=== PATIENT | female | born 1970 | race Caucasian/White ===

== ENCOUNTER 2019-09-11 09:56 | Emergency (ER) | payer MEDICAID ==
[~2019-09-11] VITALS: Ht 149.9 cm; Wt 50.0 kg
[~2019-09-11 09:56] MED LIST changes: -FLEXERIL 1010 MG/TAB PO; -PREDNISONE10 MG PO; -ULTRAM 50MG TAB50 MG PO
[2019-09-11 10:12] VITALS: TEMP 98
[2019-09-11] MEDS ORDERED: FLEXERIL 1010 MG/TAB PO ×2 (11:02→12:15)
[2019-09-11] MEDS ORDERED: PREDNISONE10 MG PO (11:02)
[2019-09-11] MEDS ORDERED: ULTRAM 50MG TAB50 MG PO ×2 (11:02→12:15)
[2019-09-11 12:15] VITALS: BP 123/69; PULSE 82
== END 2019-09-11 12:32 | disposition home or self-care (01) ==
LOC: COL.ER 09:56
DX: M25.551 Pain in right hip (principal); M25.552 Pain in left hip; F17.210 Nicotine dependence, cigarettes, uncomplicated; Z79.52 Long term (current) use of systemic steroids

== ENCOUNTER → 2019-09-11 | Outpatient (CLI) | payer MEDICAID ==
[~2019-09-11] MED LIST: AZO YEAST 6 X-61 TAB PO; AZO-CRANBERRY450 MG PO; DIFLUCAN150 MG PO; FLAGYL500 MG PO; FLEXERIL 1010 MG/TAB PO; PREDNISONE10 MG PO; ULTRAM 50MG TAB50 MG PO
== END ==
LOC: COL.RAD 09:30
DX: M16.12 Unilateral primary osteoarthritis, left hip (principal); M51.16 Intervertebral disc disorders with radiculopathy, lumbar region

== ENCOUNTER 2020-03-10 22:07 | Emergency (ER) | payer MEDICAID ==
[~2020-03-10] VITALS: Ht 149.9 cm; Wt 54.5 kg
[~2020-03-10 22:07] MED LIST changes: +FLEXERIL 1010 MG/TAB PO; +PREDNISONE10 MG PO; +ULTRAM 50MG TAB50 MG PO
[2020-03-10 22:59] VITALS: BP 117/74; TEMP 99.2
[2020-03-11 00:17] LABS: COLLECTION METHOD CLEAN CATCH
[2020-03-11 00:20] LABS: BASO % 0.4 % (0.0-2.0); EOS # 0.1 (0.0-0.7); EOS % 0.7 % (0-4.0); GRAN # 6.5 (1.4-6.5); GRAN % 64.5 % (42.2-75.2); HEMOGLOBIN 14.4 g/dl (12.5-16.0); LYMPH # 2.9 (1.2-3.4); LYMPH % 28.7 % (20.0-51.0); MEAN CELL VOLUME 92 fl (80.0-100.0); MEAN CORPUSCULAR HEMOGLOBIN 31 pg (27.0-31.0); MEAN CORPUSCULAR HGB CONC 34 g/dl (33.0-37.0); MEAN PLATELET VOLUME 10.5 fl (7.4-10.4); MONO # 0.5 (0.1-0.6); MONO % 5.4 % (1.7-9.3); PLATELET COUNT 224 K/mm3 (130-400); RED BLOOD COUNT 4.58 M/mm3 (4.10-5.30); REDCELL DISTRIBUTION WIDTH-CV 11.8 % (11.5-14.5)
[2020-03-11 00:24] LABS: MUCOUS Present /lpf; PH 5 (5-8); SQUAMOUS EPITHELIAL 0-2 /hpf; URINE APPEARANCE Hazy; URINE BACTERIA Rare /hpf; URINE BILIRUBIN Negative (NEGATIVE); URINE BLOOD Negative (NEGATIVE); URINE COLOR Yellow; URINE GLUCOSE Negative (NEGATIVE); URINE KETONE Negative (NEGATIVE); URINE LEUKOCYTE ESTERASE Negative (NEGATIVE); URINE NITRATE Negative (NEGATIVE); URINE PROTEIN(semi-quant) Negative (NEGATIVE); URINE RBC 0-2 /hpf; URINE UROBILINOGEN Negative (NEGATIVE)
[2020-03-11 00:59] LABS: ALBUMIN 4.4 gm/dL (3.5-5.0); BILIRUBIN,TOTAL 0.7 mg/dL (0.0-1.0); CALCIUM 9.2 mg/dL (8.4-10.2); CREATININE, serum 0.71 (0.52-1.25); POTASSIUM 3.2 mmol/L (3.4-5.0); TOTAL PROTEIN 7.4 gm/dL (6.4-8.2)
[2020-03-11] MEDS ORDERED: KLOR-CON 88 ME1 PO (01:32)
[2020-03-11 02:13] VITALS: PULSE 67
== END 2020-03-11 02:14 | disposition home or self-care (01) ==
LOC: COL.ER 22:07
PROVIDERS: Emergency Medicine
DX: E87.6 Hypokalemia (principal); F17.210 Nicotine dependence, cigarettes, uncomplicated; Z90.710 Acquired absence of both cervix and uterus; Z79.52 Long term (current) use of systemic steroids